=== PATIENT | female | born 1990 | race Caucasian/White ===

== ENCOUNTER 2018-10-07 07:00 | Day surgery (SDC) | payer OTHER ==
--- NOTE | 2018-09-25 19:53 | HP ---
AMENDED REPORT NOW INCLUDES DESIGNATED COSIGNER PREOPERATIVE HISTORY AND PHYSICAL: DATE OF ADMISSION/SURGERY: 10/07/18 DATE OF OFFICE VISIT: 09/25/18 ATTENDING SURGEON: Dr. Shelton Gordon.* (DICTATED BY AKSHAT BHATIA) PROCEDURE: Right shoulder arthroscopic labral repair, repair of the humeral avulsion of glenohumeral ligament, decompression, debridement, excision of distal clavicle, and possible subpectoral biceps tenodesis. CHIEF COMPLAINT: Right shoulder. HISTORY OF PRESENT ILLNESS: Dale is a 28-year-old female, who presents to the clinic for right shoulder pain after a work-related injury that caused labral tear, HAGL lesion, AC joint arthritis, and biceps tendinitis. She has failed conservative measures and therefore agreed to undergo a right shoulder arthroscopic labral repair, repair of the humeral avulsion of glenohumeral ligament, decompression, debridement, excision of distal clavicle, and possible subpectoral biceps tenodesis with Dr. Gordon on 10/07/18. PAST MEDICAL HISTORY: Asthma, depression, anxiety, eosinophilic esophagitis, and a heart murmur as a child that she no longer has. PAST SURGICAL HISTORY: Metal post in her jaw and right and left knee scope. She denies prior complications with anesthesia. MEDICATIONS: 1. Singulair 10 mg 1 by mouth daily. 2. Lamictal 2 tabs daily. 3. control 1 by mouth daily. ALLERGIES: No known drug allergies. FAMILY HISTORY: Positive for hypertension and cancer. SOCIAL HISTORY: She works as an EMT. She denies tobacco use. She reports occasional alcohol consumption. She is right-hand dominant. REVIEW OF SYSTEMS: A 14-point review of systems was reviewed with the patient. Positive for current complaint, otherwise negative. Denies fever, chills, chest pain, shortness of breath, history of DVT, history of bleeding disorder. PHYSICAL EXAMINATION VITAL SIGNS: Height 64.5, weight 195, pulse 68, blood pressure 116/72, respiratory rate 20, temperature 98.2, BMI 33. HEENT: Normocephalic, atraumatic. PERRLA. Throat clear. NECK: Supple. PULMONARY: Lungs are clear to auscultation bilaterally. No wheezing, rhonchi, or rales. CARDIO: Regular rate and rhythm. S1, S2. No murmurs, gallops, or rubs. No edema. ABDOMEN: Positive bowel sounds. Soft, nontender. NEURO: Alert and oriented x3. Cranial nerves grossly intact. Sensation intact to light touch. MUSCULOSKELETAL: Right upper extremity: Skin is intact. No warmth or erythema. Flexion and abduction to 165, external rotation to 75, internal rotation to T10. +5/5 strength to rotator cuff testing with pain. Positive impingement, Speeds, Murrell-Pablo, Dooly. +1 to 2 anterior glide. Positive apprehension/relocation. Negative sulcus sign. +2 radial pulse. Sensation intact to light touch distally. DIAGNOSTIC STUDIES: MR arthrogram revealed posterior HAGL lesion that is evident. Supra and infraspinatus tendons are intact. Subscapularis is intact. Mild tearing of the superior labrum and biceps tendinopathy as well as AC joint arthritis. ASSESSMENT AND PLAN: The patient is scheduled to undergo a right shoulder arthroscopic labral repair, repair of the humeral avulsion of glenohumeral ligament, decompression, debridement, and excision of distal clavicle with possible subpectoral biceps tenodesis with Dr. Gordon on 10/07/18. She will follow up 10 to 14 days postop. Percocet will be used for postop pain management. AKSHAT BHATIA [id number]/[facility] #: [id number] MTDJossy
[~2018-10-07 07:00] MED LIST: Buffered Lidocaine 0.9% SYRIN* 5 ML/SYR SYRINGE INTRADERM ONE; Dexamethasone IV* 4 MG/ML 1 ML (4 MG) IV SLOW PU ONE; Famotidine IV* 10 MG/ML 2 ML (20 mg) IV ONE; Lactated Ringers 1000 ML Bag* 1,000 ML IV SCH
[2018-10-07] MEDS ORDERED: ceFAZolin 2 GM PREMIX in ORs 2 GM/50 ML BAG IVPB ONE (07:48)
[2018-10-07] MEDS ORDERED: Dexamethasone IV* 4 MG/ML 1 ML (4 MG) ONE (07:48)
[2018-10-07] MEDS ORDERED: Famotidine IV* 10 MG/ML 2 ML (20 mg) ONE (07:48)
[2018-10-07] MEDS ORDERED: Midazolam* 1 MG/ML 2 ML VIAL (2 MG) ONE (08:12)
[2018-10-07] MEDS ORDERED: Propofol* 10 MG/ML 20 ML BTL ONE (08:12)
[2018-10-07] MEDS ORDERED: fentaNYL* 50 MCG/ML 2 ML VIAL (100 MCG VIAL) ONE ×2 (08:12→11:57)
[2018-10-07] MEDS ORDERED: Succinylcholine* 20 MG/ML 10 ML VIAL ONE (08:12)
[2018-10-07] MEDS ORDERED: Lidocaine 2% PF * 5 ML VIAL ONE (08:13)
[2018-10-07] MEDS ORDERED: ROPIVACAINE 5 MG/ML 30 ML BTL (0.5%) ONE (09:29)
[2018-10-07] MEDS ORDERED: Ropivacaine* 2 MG/ML 20 ML VIAL (0.2%) ONE (09:48)
[2018-10-07] MEDS ORDERED: DiMENhydriNATE IV* 50 MG/ML VIAL IV PUSH PRN (10:51)
[2018-10-07] MEDS ORDERED: Naloxone* 0.4 MG/ML 1 ML VIAL IV PRN (10:51)
[2018-10-07] MEDS ORDERED: HYDROcodone/ACETAMIN 5-325 MG* 1 TAB PO PRN (10:51)
[2018-10-07] MEDS ORDERED: Ketorolac INJ* 30 MG/ML 1 ML VIAL IV PRN (10:51)
[2018-10-07] MEDS ORDERED: Ondansetron INJ* 2 MG/ML VIAL ONE (11:10)
[2018-10-07] MEDS ORDERED: Ketorolac INJ* 30 MG/ML 1 ML VIAL ONE (11:57)
[2018-10-07] MEDS: fentaNYL* 50 MCG/ML 2 ML VIAL (100 MCG VIAL) IV PRN ×2 (11:59→12:17)
[2018-10-07] MEDS ORDERED: oxyCODONE/Acetamin 5/325 MG* TAB ONE ×2 (12:15→13:03)
[2018-10-07] MEDS: oxyCODONE/Acetamin 5/325 MG* TAB PO PRN ×2 (12:15→13:07)
[2018-10-07 13:07] VITALS: BP 129/84
--- NOTE | 2018-10-16 08:12 | OP ---
DATE OF OPERATION: 10/07/18 [facility] DATE OF : 89 SURGEON: Shelton Gordon MD NIGHT CLUB MANAGER: AKSHAT Kinsey An occupational therapist assistant was needed for the entirety of the case to help with positioning, retraction, anchor placement, and was utilized throughout the entirety of the case. ANESTHESIA: General interscalene block. PRE-OP DIAGNOSIS: Right shoulder impingement with instability, possible HAGL lesion and AC joint arthritis. POST-OP DIAGNOSIS: Right shoulder impingement with anterior instability,no HAGL lesion and AC joint arthritis. OPERATIVE PROCEDURE: Right shoulder arthroscopy 1. anterior labral repair 2. decompression with acromioplasty 3. glenohumeral debridement 4. arthroscopic distal clavicle excision. IMPLANTS USED: Felix and Nephew 2.9 Bioraptors x3. COMPLICATIONS: None. ESTIMATED BLOOD LOSS: Minimal. INDICATIONS: Dale Barbosa is a 28-year-old female who sustained a work-related injury in February 2018. She initially responded to conservative treatment but then had persistent pain, numbness and tingling. There was concern on the MRI for a possible HAGL lesion with obvious instability. She also had AC joint arthritis as well as impingement. The risks and benefits of surgery were discussed at length including, but not limited to, bleeding, infection, damage to nerves, vessels, surrounding structures, wound nonhealing, persistent pain, need for further surgery, scarring, stiffness, incomplete relief of symptoms, risk of anesthesia, risk of DVT. DESCRIPTION OF PROCEDURE: The patient was greeted in the preoperative area by the attending surgeon. Correct extremity was marked and consent was confirmed. The patient was brought back to the operating suite, where she was placed in supine position on the operating table. She underwent interscalene nerve block by anesthesiologist, after which she was brought back to the operating room where she was placed in supine position on the operating table. She then underwent general anesthesia with endotracheal intubation after which she was placed in the left lateral decubitus position with an axillary roll. All bony prominences were padded and she was secured with a peg board. The right shoulder was then prepped and draped in the usual sterile fashion beginning with chlorhexidine soap, scrub, and alcohol wipe and a final prep of ChloraPrep. After appropriate surgical pause indicating site, side, procedure, administration of antibiotics, a standard posterolateral portal was made sharply with 11 blade. The scope was introduced through the joint. The joint was examined. There were grade 0 to 1 changes of glenohumeral joint. The shoulder was obviously subluxed anteriorly. There was evidence of an anterior labral tear. There was no evidence of a HAGL lesions. Posterior labrum appeared to be intact. The anterior labrum was obviously torn and again, the head was subluxed anteriorly. The superior labrum was intact. The biceps was in good condition with no evidence of erythema. The undersurface of the rotator cuff was intact. There was positive drive through sign. At this point, low anterior portal was made sharply with 11 blade. The scope was introduced into the joint. The joint was examined. An 8 mm cannula was placed more anteriorly and then a second cannula was placed in the interval superiorly. The elevator was used to elevate the labrum beginning at the 3 o' clock position distally to the 6 o'clock position. The lateral DONNELL was used to help with distraction. The capsule was then rasped as well as the glenoid surface. Once this was done and a bony bleeding bed was made, the labrum was then carefully elevated at this point and anchor placement was done. Beginning at the 5:30 position, one 2.9 Bioraptor was placed with excellent purchase. Sutures were then passed in a horizontal mattress configuration, tied down using an arthroscopic knot tying technique. Once this was secured, this helped to eliminate drivethrough sign. The lateral DONNELL was lowered. The second anchor was placed at around the 4:30 position and the sutures were passed in similar fashion. The sutures were then tied down. A final anchor was placed at around the 3:30 position and this was passed in a simple fashion. This had been tied down. This helped to eliminate drive through sign. Head had sit more appropriately centrally in the shoulder. At this point, attention was directed to the subacromial space. The scope was positioned in the subacromial space. The lateral portal was made in an outside-in fashion. The shaver was used to debride back the abundant bursa that was present. A small anterolateral spur was identified, this was at first skeletonized using electrocautery device and then a 4-0 oval pennie was then used to do acromioplasty after which attention was directed to the AC joint. The scope was brought into the anterior aspect of the joint and the distal clavicle was then excised using a 4-0 oval pennie, distal 8 mm were then excised with care to preserve the cc ligaments. Final images were obtained. The wounds were copiously irrigated with sterile saline. Portals were closed with 3 -0 nylon. Sterile dressings were applied as well as a Cryo/Cuff and UltraSling. She was awoken from anesthesia and transferred to the PACU in stable condition. POSTOPERATIVE PLAN: She will be nonweightbearing. She will be in a sling for approximately 4 to 5 weeks. She will be discharged on pain medication. DVT prophylaxis considered but deferred due to no previous personal or family history. I will see the patient back in 10 to 14 days. [id number]/[facility] #: [id number] PRANAY
== END 2018-10-07 13:28 | disposition home or self-care (01) ==
LOC: OR 07:00
PROVIDERS: ATTEND Orthopaedic Surgery
DX: S43.491A Other sprain of right shoulder joint, initial encounter (principal); M75.41 Impingement syndrome of right shoulder; M25.311 Other instability, right shoulder; M19.011 Primary osteoarthritis, right shoulder; X58.XXXA Exposure to other specified factors, initial encounter; Y92.9 Unspecified place or not applicable; Y99.0 Civilian activity done for income or pay; J45.909 Unspecified asthma, uncomplicated; F41.8 Other specified anxiety disorders; K20.0 Eosinophilic esophagitis; G89.18 Other acute postprocedural pain
CPT/HCPCS: 81025; A9270-GY; J0330; J0690; J1100; J1885; J2250; J2405; J2704; J2795; J3010

== ENCOUNTER → 2019-09-29 09:08 | Day surgery (SDC) | payer OTHER ==
[~2019-09-29 09:08] MED LIST changes: +Acetaminophen IV 1GM/100ML * 100 ML ONE; -Buffered Lidocaine 0.9% SYRIN* 5 ML/SYR SYRINGE INTRADERM ONE; +Buffered Lidocaine 1% SYRIN* 1 ML/SYRINGE INTRADERM ONE; -Dexamethasone IV* 4 MG/ML 1 ML (4 MG) IV SLOW PU ONE; +Dexamethasone IV* 4 MG/ML 1 ML (4 MG) ONE; +Dexmedetomidine* 200 MCG/2 ML 2 ML VIAL ONE; +DiMENhydriNATE IV* 50 MG/ML VIAL IV PUSH PRN; -Famotidine IV* 10 MG/ML 2 ML (20 mg) IV ONE; +Glycopyrrolate IV* 0.2 MG/ML 1 ML VIAL ONE; +Ketorolac INJ* 30 MG/ML 1 ML VIAL ONE; +Lidocaine 2% PF * 5 ML VIAL ONE; +Metoclopramide IV* 5 MG/ML 2 ML VIAL ONE; +Midazolam* 1 MG/ML 2 ML VIAL (2 MG) ONE; +Naloxone* 0.4 MG/ML 1 ML VIAL IV PRN; +Neostigmine Methylsulfate* 1 MG/ML 10 ML VIAL (1 mg/ml) ONE; +Ondansetron INJ* 2 MG/ML VIAL ONE; +Propofol* 10 MG/ML 20 ML BTL ONE; +ROPIVACAINE 5 MG/ML 30 ML BTL (0.5%) ONE; +Rocuronium* 10 MG/ML VIAL ONE; +Ropivacaine 0.2% * 2 MG/ML VIAL ONE; +ceFAZolin 2 GM PREMIX in ORs 2 GM/50 ML BAG ONE; +fentaNYL* 50 MCG/ML 2 ML VIAL (100 MCG VIAL) ONE; +oxyCODONE TAB* 5 MG TAB ONE; +oxyCODONE TAB* 5 MG TAB PO PRN
[2019-09-29] MEDS: fentaNYL* 50 MCG/ML 2 ML VIAL (100 MCG VIAL) IV PRN ×3 (12:51→13:51)
[2019-09-29 14:58] VITALS: BP 138/88
--- NOTE | 2019-09-29 22:43 | OP ---
DATE OF OPERATION: 09/29/19 [facility] DATE OF : [birth year] SURGEON: Shelton Gordon MD. DELIVERY CONSULTANT: Yeni Delgado PA-C. An registered dental assistant rda was needed for the entirety of the case to help with positioning and retraction and was utilized throughout all portions of the case. ANESTHESIOLOGIST: Dr. Schmidt. ANESTHESIA: General with interscalene block. PRE-OP DIAGNOSIS: Persistent acromioclavicular joint pain as well as bicipital tendinitis, tendinosis, and impingement. POST-OP DIAGNOSIS: Persistent acromioclavicular joint pain as well as bicipital tendinitis, tendinosis, and impingement. OPERATIVE PROCEDURES: Right shoulder arthroscopy with: 1. Extensive glenohumeral debridement. 2. Revision of subacromial decompression. 3. Open distal clavicle excision. 4. Open subpectoral biceps. COMPLICATIONS: None. ESTIMATED BLOOD LOSS: Minimal. IMPLANTS USED: One 2.8 Q-Fix. The risks and benefits of surgery were discussed at length included but not limited to bleeding, infection, damage to nerves, vessels, surrounding structures, wound nonhealing, persistent pain, need for further surgery, scarring, stiffness, incomplete relief of symptoms and risk of anesthesia. INDICATIONS: Dale Barbosa is a 29-year-old female who had her previous surgery which was a labral repair. We evaluated the biceps but it did not look bad. I did warn her that there may be some biceps component. She had persistent symptoms. She initially did well, but the numbness and tingling returned as well as the pain. She had a previous distal clavicle excision as well. She had some persistent residual fragment after extensive discussion and a trial of physical therapy, antiinflammatories, ice, heat, and injections. She has failed conservative management. The risks and benefits were discussed at length included but not limited to bleeding, infection, damage to nerves, vessels, surrounding structures, wound nonhealing, persistent pain, need for further surgery, and risks of anesthesia. DESCRIPTION OF PROCEDURE: The patient was greeted in the preoperative area by the attending surgeon. Correct extremity was marked and consent was confirmed. The patient underwent interscalene nerve block by the anesthesiologist, after which she was brought back to the operating suite, placed in the supine position on the operating table. She then underwent general anesthesia with endotracheal intubation, after which she was placed in the left lateral decubitus position with all bony prominences well padded. She was secured with a pegboard. The right shoulder was placed under 10 lbs of traction. The right shoulder was prepped and draped in the usual sterile fashion beginning with chlorhexidine soap, scrub, alcohol wipe, and a final prep with ChloraPrep. After appropriate surgical pause indicating side, site, procedure, and administration of antibiotics, a standard postero-lateral portal was made sharply with 11-blade. Scope was then introduced into the joint. The joint was examined. The anterior labrum was intact and healed well. There was some mild fraying of the anterior, superior, and posterior labrum which was debrided back using a shaver. After the anterior portal was made, the biceps had abundant synovitis that was evident. The undersurface of the rotator cuff was intact. The inferior recess was intact. There was no HAGL lesion. Biceps was tenotomized for later tenodesis. The scope was then positioned in the subacromial space. The lateral portal was made in an outside-in fashion. There was residual bursa, recurrent bursa was debrided back using the shaver. The undersurface of the acromion was skeletonized to remove significant scar tissue. Then a 4-0 oval bur was used to do a gentle acromioplasty. The AC joint was examined and there was found to be substantial removal or an appropriate amount of resection on the undersurface , but the patient had continued symptoms after this. The arthroscopic portion was completed. Attention was directed to the AC joint. A 15-blade was used to make a saber incision over the AC joint. Soft tissue was carefully dissected. The AC Joint capsule was then incised longitudinally. Now, the dissection was made on each side of the clavicle and then approximately 1 cm of the clavicle was measured and resected using a sagittal saw. There was residual distal clavicle superiorly. The area was checked to confirm that there was adequate decompression. The wounds were then copiously irrigated with sterile saline. The capsule was closed with 0 Vicryl in an interrupted fashion and the skin was closed in layers with 3-0 Monocryl and 3-0 nylon in a running fashion. Attention was then directed to the biceps. The bed was airplaned to the right side. The anterior aspect of the shoulder was prepped again using ChloraPrep. A 15-blade was used to make an incision along the biceps. Soft tissue was carefully dissected to expose the pec. The pec was then elevated and the biceps was brought through the wound and was found to have abundant synovitis. The groove was then prepared in the usual fashion with electrocautery device, red ball rasp, and osteotome. The Q-Fix was then drilled and placed with excellent purchase and sutures were then passed through the tendon in a Arian-Kiko type configuration 1 cm proximal to the musculotendinous junction. The excess stump was excised and the biceps was shuttled back to the wound. The wounds were then copiously irrigated with sterile saline. The anterior wound was closed in layers with 3-0 Monocryl. The portals were closed with 3-0 nylon and sterile dressings were applied. A Cryo/Cuff and UltraSling were applied. She was awoken from anesthesia and transferred to the PACU in stable condition. POSTOPERATIVE PLAN: She will be nonweightbearing. She will be in a sling for 3 weeks. She will be discharged on pain medications. She will start therapy next week. She will also be discharged on antibiotics due to repeat surgery. I will see the patient back in 10 to 14 days. DVT prophylaxis was considered, but deferred due to no previous personal or family history. [id number]/[facility] #: [id number] PRANAY
== END | disposition home or self-care (01) ==
LOC: OR 09:08
PROVIDERS: ATTEND Orthopaedic Surgery
DX: M75.41 Impingement syndrome of right shoulder (principal); M19.011 Primary osteoarthritis, right shoulder; M75.21 Bicipital tendinitis, right shoulder; F31.9 Bipolar disorder, unspecified; F41.8 Other specified anxiety disorders; J45.909 Unspecified asthma, uncomplicated; G89.18 Other acute postprocedural pain
CPT/HCPCS: 81025; A9270-GY; C1776; J0690; J1100; J1885; J2250; J2405; J2704; J2710; J2765; J2795; J3010